=== PATIENT | male | born 1965 | race Caucasian/White ===

== ENCOUNTER 2020-09-03 19:23 | Emergency (ER) | payer MEDICAID ==
[~2020-09-03] VITALS: Ht 160 cm; Wt 64.7 kg
[2020-09-03 19:46] VITALS: Ht 160 cm; Wt 64.7 kg
[2020-09-03] MEDS ORDERED: DICLOFENAC SODI50 MG PO (20:34)
[2020-09-03] MEDS ORDERED: HYDROCODON-ACE1 EAC7 PO (20:36)
[2020-09-03 21:09] VITALS: BP 151/92
== END 2020-09-03 21:09 | disposition home or self-care (01) ==
LOC: D.ER 19:23
DX: S09.90XA Unspecified injury of head, initial encounter (principal); M25.512 Pain in left shoulder; V29.9XXA Motorcycle rider (driver) (passenger) injured in unspecified traffic accident, initial encounter; Y93.9 Activity, unspecified; Y92.9 Unspecified place or not applicable

== ENCOUNTER 2020-10-23 07:43 | Emergency (ER) | payer MEDICAID ==
[~2020-10-23] VITALS: Ht 160 cm; Wt 62.4 kg
[~2020-10-23 07:43] MED LIST: DICLOFENAC SODI50 MG PO; HYDROCODON-ACE1 EAC7 PO
[2020-10-23 07:50] VITALS: BP 153/99; Ht 160 cm; Wt 62.4 kg
[2020-10-23 08:21] LABS: BASOPHILS 0.6 % (0-2); EOSINOPHILS 0.5 % (0-7); HEMATOCRIT 44.3 % (42.0-54.0); MCH 29.8 pg (26.0-34.0); MCHC 33.9 g/dL (31.0-37.0); MEAN PLATELET VOLUME 7.2 fL (7.4-10.4); MONOCYTES 10.7 % (2-11); NEUTROPHILS 79.2 % (40-80); PLATELET COUNT 336 10x3/uL (130-400); RBC 5.03 10x6/uL (4.20-6.10); RDW 13.7 % (11.5-14.5); WBC 11.5 10x3/uL (4.8-10.8)
[2020-10-23 08:34] LABS: CALC OSMOLALITY 268 mosm/kg (275-300); CARBON DIOXIDE 32.6 mmol/L (21.0-32.0); CHLORIDE - SERUM 96 mmol/L (98-107); GLUCOSE 135 mg/dL (74-106); POTASSIUM - SERUM 4.3 mmol/L (3.5-5.1); SODIUM 133 mmol/L (136-145); UREA NITROGEN 15 mg/dL (7-18); eGFR NON AFRICAN AMERICAN 82 mL/min (90-120)
[2020-10-23 08:36] LABS: ALKALINE PHOSPHATASE 583 U/L (30-120); ALT (SGPT) 324 U/L (10-68); AMYLASE - SERUM 41 U/L (25-115); BILIRUBIN - TOTAL 0.75 mg/dL (0.2-1.3); LIPASE 72 U/L (73-393); PROTEIN - SERUM 8.1 g/dL (6.4-8.2)
[2020-10-23 10:22] LABS: BILIRUBIN NEGATIVE (NEGATIVE); KETONE NEGATIVE (NEGATIVE); NITRITE NEGATIVE (NEGATIVE); UROBILINOGEN NORMAL mg/dL (< 2)
[2020-10-23 10:24] LABS: WHITE CELLS - URINE 0-5 HPF (0-1)
[2020-10-23 10:25] LABS: BACTERIA FEW HPF (NONE SEEN)
[2020-10-23 10:28] LABS: UDS - AMPHET POSITIVE QUAL (NEGATIVE); UDS - BARB NEGATIVE QUAL (NEGATIVE); UDS - BENZO NEGATIVE QUAL (NEGATIVE); UDS - COCAINE NEGATIVE QUAL (NEGATIVE); UDS - OPIATE NEGATIVE QUAL (NEGATIVE); UDS - PCP NEGATIVE QUAL (NEGATIVE); UDS - THC POSITIVE QUAL (NEGATIVE)
[2020-10-23] MEDS ORDERED: PERCOCET 5-3251 TAB PO (10:48)
== END 2020-10-23 11:51 | disposition home or self-care (01) ==
LOC: D.ER 07:43
PROVIDERS: Emergency Medicine
DX: R10.31 Right lower quadrant pain (principal); F19.10 Other psychoactive substance abuse, uncomplicated; R30.0 Dysuria